=== PATIENT | male | born 1980 | race Caucasian/White ===

== ENCOUNTER 2020-10-14 21:09 | Emergency (ER) | payer OTHER ==
[2020-10-14 22:02] LABS: BASOPHIL 0.3 % (0-2); EOSINOPHIL 0.6 % (0-5); HCT 46.6 % (42.0-52.0); HGB 16.5 g/dl (13.2-18.0); LYMPHOCYTE 13.3 % (15-48); MCH 32.7 pg (25.0-31.0); MCHC 35.4 g/dL (32.0-36.0); MCV 92.5 fL (78.0-100.0); MPV 10.1 fL (6.0-9.5); NEUTROPHIL 73.4 % (41-80); NRBC 0; PLT 246 K/uL (150-400); RBC 5.04 M/uL (4.70-6.00); RDW 12.5 % (11.5-14.0); WBC 14.2 K/uL (4.0-10.5)
[2020-10-14 22:14] LABS: CREATININE 1.42 mg/dL (0.67-1.17); POTASSIUM 4.2 mmol/L (3.5-5.1)
[2020-10-14 22:15] LABS: ALBUMIN 3.6 g/dL (3.4-5.0); BILIRUBIN - TOTAL 1.7 mg/dL (0.2-1.0); GLOBULIN (CALCULATION) 4.4 g/dL
[2020-10-14 23:56] LABS: BILIRUBIN NEGATIVE (NEGATIVE); BLOOD 1+ Ery/uL (NEGATIVE); CLARITY CLEAR (CLEAR); COLOR YELLOW (YELLOW); GLUCOSE (U) NORMAL (NORMAL); LEUKOCYTES NEGATIVE Leu/uL (NEGATIVE); NITRITE NEGATIVE (NEGATIVE); PROTEIN NEGATIVE (NEGATIVE); UROBILINOGEN 0.2 mg/dL (0.2-1.0); pH 6.5 (5.0-9.0)
[2020-10-15 00:02] LABS: BACTERIA TRACE; SQUAMOUS EPITHELIAL CELLS RARE; URINARY WBC RARE
[2020-10-15] MEDS ORDERED: FLOMAX0.4 MG PO (01:53)
[2020-10-15] MEDS ORDERED: ONDANSETRON ODT4 MG SL (01:53)
[2020-10-15] MEDS ORDERED: PERCOCET 5-3251 EACH PO (01:53)
== END 2020-10-15 02:08 | disposition home or self-care (01) ==
LOC: FER 21:09
PROVIDERS: Emergency Medicine Emergency Medical Services
DX: N13.2 Hydronephrosis with renal and ureteral calculous obstruction (principal); Z87.442 Personal history of urinary calculi
CPT/HCPCS: 36415; 80053; 81001; 83605; 83690; 85025; J1170; J1885; J2405; J7030